=== PATIENT | female | born 1990 | race Caucasian/White ===

== ENCOUNTER 2017-05-07 14:29 | Emergency (ER) | payer MEDICAID ==
[~2017-05-07] VITALS: Ht 172.7 cm; Wt 70.0 kg
[~2017-05-07 14:29] MED LIST: CEPH500C3 PO; HYDR-3533 PO
--- NOTE | 2017-05-07 14:34 | PD ---
Physical Exam Time Seen by Provider: 14:32 Narrative 26-year-old female presents with complaint of lower abdominal pain 4 weeks. Reports occasional nausea. Denies vomiting, diarrhea, constipation. Reports change in vaginal discharge 4 weeks. Denies vaginal odor. Last menstrual period March 01. Took test 2 weeks ago and was negative. Patient seen in triage. Vital signs reviewed. Patient taken to medical bed. MDM Supervised Visit with VERONICA: Sally Anne May 07, 2017 14:34
[2017-05-07 14:41] VITALS: BP 120/81; PULSE 97; RESP 16; TEMP 98.4
--- NOTE | 2017-05-07 15:25 | PD ---
HPI Chief Complaint: Abdominal Pain Time Seen by Provider: 14:39 Travel History International Travel<30 days: No Contact w/Intl Traveler<30days: No Traveled to known affect area: No History of Present Illness HPI Is a 26 old woman presents emergent arm vague lower abdominal pain, amenorrhea for the past couple months, minimal mucoid vaginal discharge. Looks otherwise well. History Past Medical History Medical History: Denies Significant Hx Influenza Vaccination: No LMP: 03/04/2017 : 1 Para: 0 Past Surgical History Surgical History: No Previous Surgery Social History Alcohol Use: No Tobacco Use: Yes (/ ppd) Allergies-Medications (Allergen,Severity, Reaction): Coded Allergies: No Known Allergies (Verified , 05/07/17) Reported Meds & Prescriptions Reported Meds & Active Scripts Active No Active Prescriptions or Reported Medications Review of Systems Except as stated in HPI: all other systems reviewed are Neg Physical Exam Narrative GENERAL: Well-appearing 26 year-old woman, no acute distress. SKIN: Focused skin assessment warm/dry. HEAD: Atraumatic. Normocephalic. EYES: Pupils equal and round. No scleral icterus. No injection or drainage. ENT: No nasal bleeding or discharge. Mucous membranes pink and moist. NECK: Trachea midline. No JVD. CARDIOVASCULAR: Regular rate and rhythm. No murmur appreciated. RESPIRATORY: No accessory muscle use. Clear to auscultation. Breath sounds equal bilaterally. GASTROINTESTINAL: Abdomen soft, non-tender, nondistended. Hepatic and splenic margins not palpable. MUSCULOSKELETAL: No obvious deformities. PELVIC: Normal external female genitalia. Scant liquid vaginal discharge. Possibly little bit of adnexal swelling on the left. No significant tenderness. Data Data Last Documented VS Vital Signs Date Time Temp Pulse Resp B/P (MAP) Pulse Ox O2 Delivery O2 Flow Rate FiO2 05/07/17 14:41 98.4 97 16 120/81 (94) Room Air Orders Orders Gc And Chlamydia Pcr (05/07/17 14:48) Wet Prep Profile (05/07/17 14:48) Urinalysis - C+S If Indicated (05/07/17 14:48) Ed Urine Pregnancytest Poc (05/07/17 14:48) Labs Laboratory Tests Test 05/07/17 15:00 Urine Color YELLOW Urine Turbidity HAZY Urine pH 5.5 Urine Specific [place] 1.037 Urine Protein 30 mg/dL Urine Glucose (UA) NEG mg/dL Urine Ketones TRACE mg/dL Urine Occult Blood NEG Urine Nitrite NEG Urine Bilirubin NEG Urine Urobilinogen 2.0 MG/DL Urine Leukocyte Esterase MOD Urine RBC 6 /hpf Urine WBC 7 /hpf Urine Squamous Epithelial Cells 6 /hpf Urine Bacteria RARE /hpf Urine Mucus MANY /lpf Microscopic Urinalysis Comment CULT NOT INDICATED Clue Cells (Wet Prep) PRESENT Vaginal Trichomonas (Wet Prep) PRESENT Vaginal Yeast (Wet Prep) NS MDM Medical Decision Making Medical Screen Exam Complete: Yes Emergency Medical Condition: Yes Interpretation(s) UA: Minimal pyuria and hematuria. Clue cells present. Trichomonas present. GC chlamydia pending. Differential Diagnosis Amenorrhea, anovulatory cycles, , UTI, other Narrative Course Medical decision making 26 old woman with scant vaginal discharge, abnormal menstrual cycle, and some mild pelvic pain. Pain is really minimal. I think she is likely having an ambulatory cycles. She'll need to follow-up with FOOD COOKING MACHINE OPERATOR doctor. FINAL: Positive for trichomonas. Recommend treatment for cervicitis. Diagnosis Primary Impression: Trichomoniasis Additional Instructions: Followup with your diesel tractor operator for routine FOOD COOKING MACHINE OPERATOR care and followup testing for other sexually transmitted infection such as HIV, hepatitis, syphilis. Any sexual partners you have should be tested and treated as well. You should not have sex until you have no symptoms, and your partners tested and treated as well. Med/Other Pt SpecificInfo: No Change to Meds Scripts No Active Prescriptions or Reported Meds Disposition: DISCHARGE HOME Condition: Andres Warner MD May 07, 2017 15:25
[2017-05-07 15:50] LABS: BACTERIA, URINE RARE /hpf; BLOOD, URINE NEG (NEG); COMMENT (UR) CULT NOT INDICATED; CULTURE IF INDICATED CULT NOT INDICATED; GLUCOSE,URINE NEG (NEG); KETONE, URINE TRACE mg/dL (NEG); MUCUS URINE MANY /lpf (OCC); NITRITE,URINE NEG (NEG); PH, URINE 5.5 (5.0-8.5); SQUAMOUS EPITHELIAL CELL URINE 6 /hpf (0-5); URINE COLOR YELLOW (YELLW/STRAW)
[2017-05-07] MEDS ORDERED: ONDANSETRON ODT 4 MG TAB PO ONE (16:30)
[2017-05-07] MEDS ORDERED: AZITHROMYCIN PWD FOR SUSP 1 GM PACKET PO ONE (16:30)
[2017-05-07] MEDS ORDERED: cefTRIAXone 250 MG VIAL IM ONE (16:30)
[2017-05-07] MEDS ORDERED: LIDOCAINE HCL 1% 50 ML VIAL IM ONE (16:30)
[2017-05-07 18:59] LABS: CHLAMYDIA PCR NOT DETECTED (NOT DETECT); NEISSERIA PCR NOT DETECTED (NOT DETECT)
== END 2017-05-07 17:20 | disposition home or self-care (01) ==
LOC: NEPD 14:29
DX: A59.01 Trichomonal vulvovaginitis (principal); N91.2 Amenorrhea, unspecified
CPT/HCPCS: 81001; 84703; 87210; 87491; 87591; 96372; 99284; J0696

== ENCOUNTER 2017-05-13 20:22 | Emergency (ER) | payer MEDICAID ==
[~2017-05-13] VITALS: Ht 172.7 cm; Wt 81.0 kg
[2017-05-13 20:23] VITALS: BP 137/83; PULSE 87; RESP 16; TEMP 99; O2SAT 96
--- NOTE | 2017-05-13 21:23 | PD ---
HPI Chief Complaint: Laceration/Skin Injury Time Seen by Provider: 21:08 Travel History International Travel<30 days: No Contact w/Intl Traveler<30days: No Traveled to known affect area: No History of Present Illness HPI 27-year-old white female presents to emergency department for evaluation of a scalp laceration. She states that a flowerpot off the refrigerator hit her head last evening around 5 AM. The flowerpot did not break. She states that she sustained a laceration. She wash her scalp and went to bed. She comes in today requesting evaluation of her laceration. She is up-to-date with immunization. She denies any numbness or tingling. No nausea vomiting. No neck or back pain. It is minimal. History Past Medical Histgory Medical History: Denies Significant Hx Tetanus Vaccination: < 5 Years LMP: 05/01/17 Hx Chemotherapy: No Past Surgical History Surgical History: No Previous Surgery Social History Alcohol Use: No Tobacco Use: Yes (08/14 ppd) Allergies-Medications (Allergen,Severity, Reaction): Coded Allergies: No Known Allergies (Verified , 05/13/17) Reported Meds & Prescriptions Reported Meds & Active Scripts Active No Active Prescriptions or Reported Medications Review of Systems Except as stated in HPI: all other systems reviewed are Neg Physical Exam Narrative GENERAL: Well-developed, well-nourished in no acute distress. Nontoxic appearing. HEAD: Patient has a 3 cm laceration to the scalp just left of midline. No bony step-off. No foreign body.. EYES: Pupils equal round and reactive. Extraocular motions intact. No scleral icterus. No injection or drainage. ENT: TMs clear without erythema. The external auditory canals clear. Nose: clear . Posterior pharynx is pink and moist. No tonsillar edema or exudate. Uvula midline. Airway patent. NECK: Trachea midline.Supple, nontender, moves head freely. No central bony tenderness or spasm. CARDIOVASCULAR: Regular rate and rhythm without murmurs, gallops, or rubs. RESPIRATORY: Clear to auscultation. Breath sounds equal bilaterally. No wheezes , rales, or rhonchi. GASTROINTESTINAL: Abdomen soft, non-tender, nondistended. No hepato-splenomegaly , or palpable masses. No guarding. EXTREMITIES: No clubbing, cyanosis, or edema. No joint tenderness, effusion, or edema noted. BACK: Nontender without deformity or crepitance. No flank tenderness. Data Data Last Documented VS Vital Signs Date Time Temp Pulse Resp B/P (MAP) Pulse Ox O2 Delivery O2 Flow Rate FiO2 05/13/17 20:23 99.0 87 16 137/83 (101) 96 Room Air MDM Medical Screen Exam Complete: Yes Emergency Medical Condition: No Differential Diagnosis MDM: High Differential diagnoses: Fracture, sprain, strain, dislocation, contusion, neurovascular injury Narrative Course A medical screening exam was performed: At the time of evaluation the presenting medical condition was determined not to be of an emergent nature. The patient was given the option of receiving additional care, but declined. Patient was given options for additional community resources from which to obtain care. The Patient Has Been advised to seek medical attention for their presenting complaint. The patient has been advised to return to the ER at any time if an emergent condition develops. Primary Impression: Encounter for medical screening examination Scripts No Active Prescriptions or Reported Meds Condition: Stable Krish Perales May 13, 2017 21:23
== END 2017-05-13 21:28 | disposition left against medical advice (07) ==
LOC: NEPK 20:22
DX: S01.01XA Laceration without foreign body of scalp, initial encounter (principal); W22.8XXA Striking against or struck by other objects, initial encounter
CPT/HCPCS: 99281